=== PATIENT | female | born 1960 | race Caucasian/White ===

== ENCOUNTER 2022-07-02 07:56 | Emergency (ER) | payer OTHER, SELFPAY ==
--- NOTE | ~2022-07-02 | XR_ITS ---
EXAMINATION: XR CHEST CLINICAL INFORMATION: Chest pain COMPARISON: Chest x-ray June 20, 2018 TECHNIQUE: Frontal view of the chest was obtained. FINDINGS: Cardiac silhouette is normal in size. The lungs are well aerated. There is no lobar consolidation. No pleural effusion or pneumothorax. XR/XR chest 1V IMPRESSION: No acute pulmonary pathology.
--- NOTE | 2022-07-02 07:57 | ECG_ITS ---
Test Reason : CHEST PAIN Blood Pressure : / mmHG Vent. Rate : 091 BPM Atrial Rate : 091 BPM P-R Int : 168 ms QRS Dur : 064 ms QT Int : 352 ms P-R-T Axes : 055 -07 036 degrees QTc Int : 432 ms Normal sinus rhythm Possible Left atrial enlargement Septal infarct , age undetermined Abnormal ECG No previous ECGs available Referred By: Generic ED Physician Electronically Signed By:JADE GAYTAN
[2022-07-02 08:00] VITALS: BP 185/90; PULSE 93; RESP 18; TEMP 37.2; O2SAT 97; BMI 34.9
--- NOTE | 2022-07-02 08:16 | ED.CHESTPAIN ---
HPI - Chest Pain General Chief Complaint: Chest Pain Stated Complaint: chest pain Time Seen by Provider: 07/02/22 08:02 Source: patient Mode of arrival: ambulatory Limitations: no limitations History of Present Illness HPI narrative: 62-year-old female past medical history of hypertension, diabetes, asthma, GERD presents to the emergency department with a 2 day history of shortness of breath and chest tightness/pain located in the epigastric area with associated weakness and fatigue. Patient states she has pressure on her chest as if 'an elephant was sitting on her.' She also reports body twitching that began this morning. She has been using ASA 81 mg at home. She states she is prescribed amlodipine, losartan, Carvedilol, and HCTZ for treatment of her hypertension, however; she is not taken any of her medications in the past week as she has run out. She is prescribed insulin and metformin for control of her diabetes and has not taken those for the past 2 days as she states she felt too sick to take her medication. She states her blood sugar at home was 253 yesterday. She denies any known illness, recent contacts, nausea, vomiting, diarrhea, constipation, headache, or vision changes. MD complaint: chest pain Onset (ago): day(s) (2) Timing of current episode: constant Prior episodes: No Pain location: epigastric Pain radiation: none Severity: moderate Pain scale (0-10): 4 Quality: heaviness and crushing Relieving factors: nothing Exacerbating factors: other (talking) Treatment prior to arrival: aspirin Risk Factors Coronary artery disease risk factors: diabetes and hypertension Related Data On Oral Contraceptives: No Previous Rx's Medication Instructions Recorded nitrofurantoin macrocrystal 100 mg 100 mg PO BID 5 days #10 caps 07/02/22 capsule Allergies Allergy/AdvReac Type Severity Reaction Status Date / Time ciprofloxacin [From Cipro] Allergy Anaphylaxis Verified 07/02/22 07:59 Penicillins [PCN] Allergy Anaphylaxis Verified 07/02/22 07:59 sulfamethoxazole Allergy Anaphylaxis Verified 07/02/22 07:59 [From Bactrim] trimethoprim [From Bactrim] Allergy Anaphylaxis Verified 07/02/22 07:59 Review of Systems Review of Systems: In addition to documented HPI above, the additional ROS was obtained: CONSTITUTIONAL: Denies fever, chills, headache, night sweats, or weight loss EYES: Denies vision changes, eye pain, swelling, redness, foreign body, discharge ENT: Hearing normal. Denies sore throat, swallowing difficulty. congestion, ear pain, no hoarseness or CV: No edema, palpitations, or dyspnea on exertion RESP: Denies cough, wheezing, dyspnea. Denies smoke exposure GI: Denies abdominal pain. Denies nausea, vomiting, constipation or diarrhea. No melena or hematochezia. : Denies irregular bleeding, and dysuria, urinary frequency, urinary incontinence/retention, urgency. Denies flank pain, hematuria MSK: Denies recent trauma, change in gait, myalgias, joint swelling or pain SKIN: Denies no lesions, rashes, or sores NEURO: Denies new numbness, tingling, dizziness, paresthesias or weakness. No loss of consciousness. Denies headache ENDOCRINE: Denies unexpected weight loss. Denies polyuria, polydipsia. No temperature intolerance HEME/ONC: Denies bleeding disorders, easy bruising, or lymphadenopathy PSYCH: Denies anxiety/panic, depression, SI/HI, or social issues. Yes all other systems are reviewed and are negative PMFSH Social History Social History Alcohol intake: never Smoked in Last 30 Days: No Use of substances other than those prescribed or required for medical reasons: No Advance Directives: No Advance Directives Information Provided: Yes Patient : No Physical Exam Vital Signs: Vital Signs: Last Vital Signs Temp 98.9 F 07/02/22 08:00 Pulse 83 07/02/22 12:18 Resp 18 07/02/22 12:18 BP 162/93 H 07/02/22 12:18 Pulse Ox 96 07/02/22 11:34 O2 Del Method 07/02/22 11:34 BMI result Body Mass Index 34.9 Const: General: cooperative, alert and awake Nutritional Appearance: well nourished Orientation/consciousness: patient oriented x3 Limitations: no limitations HEENT: Head: Yes normal to inspection and Yes atraumatic Ears: hearing grossly normal bilaterally and external ears normal General nose exam: Normal external nose present and Normal nares present Face and sinus: Yes normal facial exam and Yes face symmetric Mouth: Normal oral and palatal mucosa present and lip normal Eyes: General: appearance normal, both eyes and all related structures Visual Sam: normal visual sam by confrontation Alignment and Position: alignment normal Periorbital: periorbital findings normal Eyelids: Yes eyelids normal Conjunctivae: conjunctivae normal Sclerae: sclerae normal Corneas: corneas normal Pupils: Equal, round and reactive pupils present EOM: EOMs intact bilaterally Neck: Neck: Yes normal visual inspection, Yes full ROM and Yes no lymphadenopathy Chest: Chest palpation & inspection: normal inspection of the chest Resp: Effort & Inspection: normal respiratory effort, Actively coughing Quality: dry and not labored Auscultation: crackles on the left in the mid lung sam, no wheezes and diminished lung sounds Cardio: Jugular venous distension: no JVD Rate: regular rate Rhythm: regular rhythm GI: Inspection: Yes normal to inspection Palpation (GI): Soft to palpation and nontender Auscultation: normal bowel sounds : General: Yes no CVA tenderness Back/Spine/Pelvis: Back: no CVA tenderness Cervical Spine: cervical ROM normal Thoracic/Lumbar Spine: thoraco-lumbar ROM normal Skin: General skin exam: no rashes or lesions noted Neuro: General: patient oriented x3, tone normal and moves all extremities Cranial nerves: Yes Equal, round and reactive pupils present Cognition (Neuro): normal cognition Gait exam (Neuro): Normal gait present Motor exam (neuro): 5/5 motor strength present throughout Extrem: General: Yes normal to inspection, Yes full ROM and Yes capillary refill normal Psych: Appearance: grossly normal Mental Status: mental status grossly normal Speech and movement: Normal speech and movement present Affect: normal affect Attitude: cooperative Thought process: Normal thought process present Thought content: Normal thought content present Insight: Good insight present (Psych) Judgement: Good judgement present (Psych) Course Course Course Narrative: 0800: EKG, CXR, and labs ordered to rule in/out acute cardiac process. 0830: UA, MICHAELS, and mag level ordered due to pt's complaints of jerking movements. 1000: Pt ambulating to bathroom independently without issue Medications Administered Discontinued Medications Generic Name Dose Route Start Last Admin Trade Name Iris PRN Reason Stop Dose Admin Amlodipine Besylate 5 mg 07/02/22 11:00 07/02/22 11:39 Amlodipine Besylate 5 Mg Tablet PO 07/02/22 11:01 5 mg ONCE ONE Administration Protocol Carvedilol 12.5 mg 07/02/22 11:00 07/02/22 11:39 Carvedilol 12.5 Mg Tablet PO 07/02/22 11:01 12.5 mg ONCE ONE Administration Protocol Hydrochlorothiazide 25 mg 07/02/22 11:00 07/02/22 11:39 Hydrochlorothiazide 25 Mg Tablet PO 07/02/22 11:01 25 mg ONCE ONE Administration Protocol Insulin Human Lispro 8 unit 07/02/22 12:41 07/02/22 12:43 Insulin Lispro 100 Unit/Ml 3 Ml Vial SUBCUT 07/02/22 12:42 8 unit ONCE ONE Administration Losartan Potassium 100 mg 07/02/22 11:00 07/02/22 11:39 Losartan Potassium 50 Mg Tablet PO 07/02/22 11:01 100 mg ONCE ONE Administration Protocol Medical Decision Making Medical Decision Making MDM Narrative: 62-year-old female past medical history of hypertension, diabetes, asthma, GERD presents to the emergency department with a 2 day history of shortness of breath and chest tightness/pain located in the epigastric area with associated weakness and fatigue. Patient states she has pressure on her chest as if 'an elephant was sitting on her.' She also reports body twitching that began this morning. CXR with no acut pulmonary pathology, cardiac silhouette is normal in size. EKG normal sinus rhythm with possible left atrial enlargement, and septal infarct age undetermined. Blood work showing glucose level 347, otherwise unremarkable. Troponin negative. 8 units SQ Lispro given with repeat POC 276. Patient educated to take her prescribed medication to manage her diabetes. Patient's prescribed antihypertensives given in the emergency department as patient's blood pressure is 185/90 and patient has not taken her prescribed blood pressure medication in greater than 1 week with repeat blood pressure improved. Urinalyisis consistent with UTI. Nitrofurantion 7 day course prescribed for antibiotic coverage. HPI, PE, and diagnostics consistent with acute on chronic hypertension. Low suspicion for acute cardiac or pulmonary pathology. Patient is safe for discharge at this time and educated on importance of medical compliance. HPI, PE, diagnostics, and plan discussed with patient and family with no unanswered questions at this time. Patient educated to return to the emergency department with new, worsening, or concerning emergent symptoms. Recommended to follow-up with her primary care provider for further treatment and management. *Refer to Course for additional information on consultations, diagnostic interpretation, consultations, emergency department stay, conversations with patient and family, shared decision making with patient, and more information on medical decision making* Lab Data MDM Lab Attestation statement: I reviewed the patient's lab results. 07/02/22 08:24 07/02/22 08:24 Labs: Lab Results 07/02/22 07/02/22 07/02/22 Range/Units 08:24 08:24 08:24 WBC 9.3 (4.8-10.8) X10*3/uL RBC 5.14 (4.20-5.50) X10*6/uL Hgb 14.8 (12.0-16.0) g/dl Hct 43.5 (37.0-47.0) % MCV 84.6 (80.0-98.0) fL MCH 28.8 (27.0-33.0) pg MCHC 34.0 (31.0-35.0) g/dl RDW 11.8 (11.0-16.0) % Plt Count 320 (160-400) X10*3/uL MPV 9.8 (9.4-12.3) fL Immature Gran % (Auto) 0.2 (0.0-0.4) % Neut % (Auto) 51.0 (45-73) % Lymph % (Auto) 38.1 (20-40) % [place] % (Auto) 8.0 (2-11) % Eos % (Auto) 2.1 (0-4) % Baso % (Auto) 0.6 (0-2) % Lymph # (Auto) 3.5 (1.2-4.9) X10*3/uL [place] # (Auto) 0.7 (0.1-1.2) X10*3/uL Eos # (Auto) 0.2 (0.0-0.4) X10*3/uL Baso # (Auto) 0.1 (0.0-0.2) X10*3/uL Abs Immat Gran (auto) 0.02 (0.00-0.03) X10*3/uL Absolute Neuts (auto) 4.7 (2.0-8.3) x10*3/uL Absolute Nucleated RBC 0.000 (0.0-0.012) X10*3/uL Nucleated RBC % (auto) 0.0 (0.0-0.2) /100WBC Sodium 138 (135-145) mmol/L Potassium 4.1 (3.3-5.1) mmol/L Chloride 103 (96-108) mmol/L Carbon Dioxide 23 (22-29) mmol/L Anion Gap 16 (12-20) BUN 16 (9-16) mg/dL Creatinine 1.02 (0.5-1.4) mg/dL Estim Creat Clear Calc 53.2 Estimated GFR 55 POC Glucose (60-115) mg/dL Random Glucose 347 H (60-115) mg/dL Calcium 9.5 (8.4-10.2) mg/dL Magnesium (1.6-2.6) mg/dL Total Bilirubin 0.6 (0.0-1.0) mg/dL AST 32 H (5-31) U/L ALT 26 (0-31) U/L Alkaline Phosphatase 94 (39-117) U/L Troponin I High Sens < 3.5 (<3.5-17.0) ng/L Total Protein 6.8 (6.5-8.0) g/dL Albumin 4.2 (3.5-5.0) g/dL Urine Color Urine Appearance Urine pH (5.0-9.0) Ur Specific [place] (1.005-1.025) Urine Protein (Neg-Trace) mg/dL Urine Glucose (UA) (Negative) mg/dL Urine Ketones (Negative) mg/dL Urine Blood (Negative) Urine Nitrite (Negative) Ur Leukocyte Esterase (Negative) Urine RBC (0-2) /HPF Urine WBC (0-5) /HPF Ur Squamous Epith Cells (0-2) /HPF Urine Bacteria (None Seen) Hyaline Casts (0-2) /LPF Urine Opiates Screen (Not Detect) Urine Fentanyl Screen (Not Detect) Ur Barbiturates Screen (Not Detect) Ur Phencyclidine Scrn (Not Detect) Ur Amphetamines Screen (Not Detect) U Benzodiazepines Scrn (Not Detect) Urine Cocaine Screen (Not Detect) U Marijuana (THC) Screen (Not Detect) Ethyl Alcohol mg/dL 07/02/22 07/02/22 07/02/22 Range/Units 08:52 11:38 11:38 WBC (4.8-10.8) X10*3/uL RBC (4.20-5.50) X10*6/uL Hgb (12.0-16.0) g/dl Hct (37.0-47.0) % MCV (80.0-98.0) fL MCH (27.0-33.0) pg MCHC (31.0-35.0) g/dl RDW (11.0-16.0) % Plt Count (160-400) X10*3/uL MPV (9.4-12.3) fL Immature Gran % (Auto) (0.0-0.4) % Neut % (Auto) (45-73) % Lymph % (Auto) (20-40) % [place] % (Auto) (2-11) % Eos % (Auto) (0-4) % Baso % (Auto) (0-2) % Lymph # (Auto) (1.2-4.9) X10*3/uL [place] # (Auto) (0.1-1.2) X10*3/uL Eos # (Auto) (0.0-0.4) X10*3/uL Baso # (Auto) (0.0-0.2) X10*3/uL Abs Immat Gran (auto) (0.00-0.03) X10*3/uL Absolute Neuts (auto) (2.0-8.3) x10*3/uL Absolute Nucleated RBC (0.0-0.012) X10*3/uL Nucleated RBC % (auto) (0.0-0.2) /100WBC Sodium (135-145) mmol/L Potassium (3.3-5.1) mmol/L Chloride (96-108) mmol/L Carbon Dioxide (22-29) mmol/L Anion Gap (12-20) BUN (9-16) mg/dL Creatinine (0.5-1.4) mg/dL Estim Creat Clear Calc Estimated GFR POC Glucose (60-115) mg/dL Random Glucose (60-115) mg/dL Calcium (8.4-10.2) mg/dL Magnesium 1.7 (1.6-2.6) mg/dL Total Bilirubin (0.0-1.0) mg/dL AST (5-31) U/L ALT (0-31) U/L Alkaline Phosphatase (39-117) U/L Troponin I High Sens (<3.5-17.0) ng/L Total Protein (6.5-8.0) g/dL Albumin (3.5-5.0) g/dL Urine Color Yellow Urine Appearance Clear Urine pH 6.0 (5.0-9.0) Ur Specific [place] 1.025 (1.005-1.025) Urine Protein 30 (1+) H (Neg-Trace) mg/dL Urine Glucose (UA) >=1000 H (Negative) mg/dL Urine Ketones 15 (Negative) mg/dL Urine Blood Negative (Negative) Urine Nitrite Negative (Negative) Ur Leukocyte Esterase Small (1+) H (Negative) Urine RBC 0-2 (0-2) /HPF Urine WBC 11-20 H (0-5) /HPF Ur Squamous Epith Cells 3-5 (0-2) /HPF Urine Bacteria None Seen (None Seen) Hyaline Casts 0-2 (0-2) /LPF Urine Opiates Screen Not Detected (Not Detect) Urine Fentanyl Screen Not Detected (Not Detect) Ur Barbiturates Screen Not Detected (Not Detect) Ur Phencyclidine Scrn Not Detected (Not Detect) Ur Amphetamines Screen Not Detected (Not Detect) U Benzodiazepines Scrn Not Detected (Not Detect) Urine Cocaine Screen Not Detected (Not Detect) U Marijuana (THC) Screen Not Detected (Not Detect) Ethyl Alcohol < 10 mg/dL 07/02/22 07/02/22 Range/Units 12:40 13:35 WBC (4.8-10.8) X10*3/uL RBC (4.20-5.50) X10*6/uL Hgb (12.0-16.0) g/dl Hct (37.0-47.0) % MCV (80.0-98.0) fL MCH (27.0-33.0) pg MCHC (31.0-35.0) g/dl RDW (11.0-16.0) % Plt Count (160-400) X10*3/uL MPV (9.4-12.3) fL Immature Gran % (Auto) (0.0-0.4) % Neut % (Auto) (45-73) % Lymph % (Auto) (20-40) % [place] % (Auto) (2-11) % Eos % (Auto) (0-4) % Baso % (Auto) (0-2) % Lymph # (Auto) (1.2-4.9) X10*3/uL [place] # (Auto) (0.1-1.2) X10*3/uL Eos # (Auto) (0.0-0.4) X10*3/uL Baso # (Auto) (0.0-0.2) X10*3/uL Abs Immat Gran (auto) (0.00-0.03) X10*3/uL Absolute Neuts (auto) (2.0-8.3) x10*3/uL Absolute Nucleated RBC (0.0-0.012) X10*3/uL Nucleated RBC % (auto) (0.0-0.2) /100WBC Sodium (135-145) mmol/L Potassium (3.3-5.1) mmol/L Chloride (96-108) mmol/L Carbon Dioxide (22-29) mmol/L Anion Gap (12-20) BUN (9-16) mg/dL Creatinine (0.5-1.4) mg/dL Estim Creat Clear Calc Estimated GFR POC Glucose 282 H 276 H (60-115) mg/dL Random Glucose (60-115) mg/dL Calcium (8.4-10.2) mg/dL Magnesium (1.6-2.6) mg/dL Total Bilirubin (0.0-1.0) mg/dL AST (5-31) U/L ALT (0-31) U/L Alkaline Phosphatase (39-117) U/L Troponin I High Sens (<3.5-17.0) ng/L Total Protein (6.5-8.0) g/dL Albumin (3.5-5.0) g/dL Urine Color Urine Appearance Urine pH (5.0-9.0) Ur Specific [place] (1.005-1.025) Urine Protein (Neg-Trace) mg/dL Urine Glucose (UA) (Negative) mg/dL Urine Ketones (Negative) mg/dL Urine Blood (Negative) Urine Nitrite (Negative) Ur Leukocyte Esterase (Negative) Urine RBC (0-2) /HPF Urine WBC (0-5) /HPF Ur Squamous Epith Cells (0-2) /HPF Urine Bacteria (None Seen) Hyaline Casts (0-2) /LPF Urine Opiates Screen (Not Detect) Urine Fentanyl Screen (Not Detect) Ur Barbiturates Screen (Not Detect) Ur Phencyclidine Scrn (Not Detect) Ur Amphetamines Screen (Not Detect) U Benzodiazepines Scrn (Not Detect) Urine Cocaine Screen (Not Detect) U Marijuana (THC) Screen (Not Detect) Ethyl Alcohol mg/dL Independent Interpretation I performed an independent interpretation of an: EKG Interpretation: I have independently reviewed the EKG showing normal sinus rhythm with possible left atrial enlargement with an age undetermined septal infarct. No previous EKGs available to review/compare Vent. Rate : 091 BPM ? ? Atrial Rate : 091 BPM ?? P-R Int : 168 ms? QRS Dur : 064 ms ? ?QT Int : 352 ms ? ? ? P-R-T Axes : 055 -07 036 degrees ?? QTc Int : 432 ms ? Normal sinus rhythm Possible Left atrial enlargement Septal infarct , age undetermined Abnormal ECG No previous ECGs available Radiology Impression Discussion of test interpretation with radiology: I have reviewed the radiologist's reading. Radiologist Impression: I have independently reviewed the chest x-ray showing no acute cardiopulmonary pathology EXAMINATION: XR CHEST CLINICAL INFORMATION: Chest pain COMPARISON: Chest x-ray June 20, 2018 TECHNIQUE: Frontal view of the chest was obtained. FINDINGS: Cardiac silhouette is normal in size. The lungs are well aerated. There is no lobar consolidation. No pleural effusion or pneumothorax. XR/XR chest 1V IMPRESSION: No acute pulmonary pathology. ? Dictated By: Jasbir Guardado MD Signed By: <Electronically signed by Jasbir Guardado MD in OV> 07/02/22 1020 DD/ 0955 TD/TT:? 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 You have been given 8 units of insulin for treatment of hyperglycemia. Your urine is positive for infection and will be started on a 7 day course of antibiotics. Please complete full course of antibiotics. Your EKG is normal sinus rhythm, possible left atrial enlargement, septal infarct age undetermined. You are safe for discharge at this time. Please manage your symptoms with [id number] Tylenol and/or Motrin with dosing as directed on packaging. Please return to the emergency department with new, worsening, or concerning emergent symptoms. Please follow-up with your primary care provider for further treatment and management. Prescriptions: New nitrofurantoin macrocrystal 100 mg capsule 100 mg PO BID 5 Days Qty: 10 0RF Rx Instructions: must administer with a meal/food Referrals: [facility] [place] Family Medicine [Provider Group] [facility] [place] Primary [facility] [Provider Group] [facility] [place] [facility] [Provider Group] Print Language: Greenlandic
[2022-07-02 08:29] LABS: Basophils Absolute Auto 0.1 X10*3/uL (0.0-0.2); Basophils Percent Auto 0.6 % (0-2); Eosinophils Absolute Auto 0.2 X10*3/uL (0.0-0.4); Eosinophils Percent Auto 2.1 % (0-4); Hematocrit 43.5 % (37.0-47.0); Hemoglobin 14.8 g/dl (12.0-16.0); Imm Gran Abs Auto 0.02 X10*3/uL (0.00-0.03); Imm Gran Pct Auto 0.2 % (0.0-0.4); Lymphocytes Absolute Auto 3.5 X10*3/uL (1.2-4.9); Lymphocytes Percent Auto 38.1 % (20-40); MANUAL DIFF FLAG NO; Mean Corpuscular Hemoglobin 28.8 pg (27.0-33.0); Mean Corpuscular Volume 84.6 fL (80.0-98.0); Mean Platelet Volume 9.8 fL (9.4-12.3); Monocytes Absolute Auto 0.7 X10*3/uL (0.1-1.2); Neutrophils Absolute Auto 4.7 x10*3/uL (2.0-8.3); Platelet Count 320 X10*3/uL (160-400); Red Blood Count 5.14 X10*6/uL (4.20-5.50); Red Cell Distribution Width 11.8 % (11.0-16.0); White Blood Count 9.3 X10*3/uL (4.8-10.8)
[2022-07-02 08:48] LABS: Alanine Aminotransferase 26 U/L (0-31); Albumin Level 4.2 g/dL (3.5-5.0); Alkaline Phosphatase 94 U/L (39-117); Anion Gap 16 (12-20); Aspartate Amino Transferase 32 U/L (5-31); Bilirubin Total 0.6 mg/dL (0.0-1.0); Blood Urea Nitrogen 16 mg/dL (9-16); Calcium 9.5 mg/dL (8.4-10.2); Carbon Dioxide 23 mmol/L (22-29); Chloride 103 mmol/L (96-108); Creatinine Clr Calc Pharmacy 53.2; Estimated Glomerular Filt Rate 55; Glucose Random 347 mg/dL (60-115); Potassium 4.1 mmol/L (3.3-5.1); Sodium 138 mmol/L (135-145); Total Protein 6.8 g/dL (6.5-8.0)
[2022-07-02 08:55] LABS: Troponin-I High Sensitivity < 3.5 ng/L (<3.5-17.0)
[2022-07-02 09:16] LABS: Ethanol < 10 mg/dL; Magnesium 1.7 mg/dL (1.6-2.6)
[2022-07-02 11:34] VITALS: BP 179/84; PULSE 86; RESP 20; O2SAT 96
[2022-07-02] MEDS: hydroCHLOROthiazide 25 MG TABLET PO (11:39)
[2022-07-02] MEDS: carvediloL 12.5 MG TABLET PO (11:39)
[2022-07-02] MEDS: Losartan Potassium 50 MG TABLET 100 MG PO (11:39)
[2022-07-02] MEDS: amLODIPine Besylate 5 MG TABLET PO (11:39)
[2022-07-02 11:50] LABS: Appearance Urine Clear; Color Urine Yellow; Glucose Urine UA >=1000 mg/dL (Negative); Leukocyte Esterase Urine Small (1+) (Negative); Nitrite Urine Negative (Negative); Specific Gravity - Urine 1.025 (1.005-1.025); UMIC TRIGGER UACC YES; Urine Blood Negative (Negative); Urine Ketones 15 mg/dL (Negative); Urine Protein 30 (1+) mg/dL (Neg-Trace)
[2022-07-02 11:53] LABS: Bacteria Urine None Seen (None Seen); Hyaline Casts Urine 0-2 /LPF (0-2); RBC Urine 0-2 /HPF (0-2); UACC Culture Trigger YES
[2022-07-02 12:15] LABS: Amphetamine Screen Urine Not Detected (Not Detect); Barbiturates, Urine Not Detected (Not Detect); Benzodiazepines Screen Urine Not Detected (Not Detect); Cannabinoid Screen Urine Not Detected (Not Detect); Cocaine Screen Urine Not Detected (Not Detect); Fentanyl, urine Not Detected (Not Detect); Opiate Screen Urine Not Detected (Not Detect); Phencyclidine Screen Urine Not Detected (Not Detect)
[2022-07-02 12:18] VITALS: BP 162/93; PULSE 83; RESP 18
[2022-07-02] MEDS: Insulin Lispro 100 UNIT/ML 3 ML VIAL 8 UNIT SUBCUT (12:43)
[2022-07-02 12:45] LABS: Glucose, Whole Blood 282 mg/dL (60-115)
[2022-07-02 13:40] LABS: Glucose, Whole Blood 276 mg/dL (60-115)
== END 2022-07-02 14:20 | disposition home or self-care (01) ==
PROVIDERS: Nurse Practitioner Family; Emergency Provider Student in an Organized Health Care Education/Training Program
DX: R07.9 Chest pain, unspecified (principal); I10 Essential (primary) hypertension; E11.9 Type 2 diabetes mellitus without complications; Z79.899 Other long term (current) drug therapy
CPT/HCPCS: 36415; 71045; 80053; 80307; 81001; 82077; 82947; 83735; 84484; 85025; 87086; 87147; 93005; 99283; 99285

== ENCOUNTER 2022-12-02 05:18 | Emergency (ER) | payer OTHER, SELFPAY ==
--- NOTE | ~2022-12-02 | CT_ITS ---
EXAMINATION: CT PELVIS WITHOUT CONTRAST CLINICAL INFORMATION: Rule out fracture on the right, status post fall COMPARISON: None available. TECHNIQUE: Helical scanning was performed with submillimeter collimation through the pelvis. Sagittal and coronal multiplanar 2-D reconstructions were obtained. This CT examination was performed using dose optimization techniques as appropriate, variously including the following: *Automated exposure control *Adjustment of mA and/or kV according to patient size (this includes techniques or standardized protocols for targeted exams where dose is matched to indication/reason for exam; i.e. extremities or head) *Use of iterative reconstruction technique DLP: 459 mGy-cm FINDINGS: VASCULAR: Unremarkable. LYMPH NODES: Normal BLADDER: Unremarkable PELVIC VISCERA: Unremarkable VISUALIZED GASTROINTESTINAL TRACT: The small and large bowel are unremarkable. OSSEOUS STRUCTURES: Visualized osseous structures are intact. There is no evidence of pelvic or hips fractures. Soft tissues surrounding right side of the pelvis and hips are unremarkable also. CT/CT pelvis wo IV con IMPRESSION: Unremarkable examination.
[2022-12-02 05:24] VITALS: BP 183/89; PULSE 94; RESP 18; TEMP 36.2; O2SAT 96; BMI 35.0
--- NOTE | 2022-12-02 05:46 | ED_ITS ---
HPI - General Adult General Chief complaint: Extremity Injury, Lower Stated complaint: Hip pain Time Seen by Provider: 12/02/22 05:30 Source: patient Mode of arrival: ambulatory Limitations: no limitations History of Present Illness HPI narrative: Patient comes to the emergency room complaining of right-sided hip pain for 2 weeks. Patient states that 2 weeks ago she missed a step and landed on the right side of the hip, no other injuries past, not on blood thinners. Patient states that she has been able to ambulate but over the last 3 days it has been coming more severe to the point that she cannot bear weight. Patient denies numbness tingling of lower extremity, no previous back/hip injuries. Related Data Previous Rx's Medication Instructions Recorded nitrofurantoin macrocrystal 100 mg 100 mg PO BID 5 days #10 caps 07/02/22 capsule Allergies Allergy/AdvReac Type Severity Reaction Status Date / Time ciprofloxacin [From Cipro] Allergy Anaphylaxis Verified 07/02/22 07:59 Penicillins [PCN] Allergy Anaphylaxis Verified 07/02/22 07:59 sulfamethoxazole Allergy Anaphylaxis Verified 07/02/22 07:59 [From Bactrim] trimethoprim [From Bactrim] Allergy Anaphylaxis Verified 07/02/22 07:59 Review of Systems Review of Systems: Constitutional : No Weight loss, No Fever, No Chills, No Night Sweats, No Fatigue, No Malaise ENT/Mouth : No Hearing loss, No Ear Pain, No Nasal Congestion, No Sinus Pain, No Hoarseness, No sore throat, No Rhinorrhea, No Swallowing Difficulty Eyes: No Eye Pain, No Swelling, No Redness, No Foreign Body, No Discharge, No Vision Changes Cardiovascular : No Chest Pain, No SOB, No Dyspnea on Exertion, No Orthopnea, No Edema, No Palpitations Respiratory : No Cough, No Sputum, No Wheezing, No Smoke Exposure, No Dyspnea Gastrointestinal : No Nausea, No Vomiting, No Diarrhea, No Constipation, No abdominal Pain, No Hematochezia, No Melena Genitourinary : no irregular bleeding, No Dysuria, No Urinary Frequency, No Hematuria, No Urinary Incontinence, No Urgency, No Flank Pain, No Urinary Flow Changes, No Hesitancy Musculoskeletal : Complaining of right-sided hip pain, No joint pain, No Myalgias, No Joint Swelling Skin : No Skin Lesions, No rash Neuro : No Weakness, No Numbness, No Paresthesias, No Loss of Consciousness, No Dizziness, No Headache Psych : No Anxiety/Panic, No Depression, No SI/HI/AH/VH, No Social Issues, Heme/Lymph: No Bruising, No Bleeding,No Lymphadenopathy Endocrine : No Polyuria, No Polydipsia, No Temperature Intolerance [facility] Past Medical History Medical History (Updated 12/02/22 @ 06:55 by Aileen Paige MD) Diabetes Hyperlipidemia Hypertension Social History Social History Alcohol intake: never Use of substances other than those prescribed or required for medical reasons: No Advance Directives: No Advance Directives Information Provided: Yes Physical Exam ED Vital Signs: Vital Signs - 24 hr 12/02/22 05:24 12/02/22 06:35 Temperature 97.2 F 98.4 F Pulse Rate 94 81 Respiratory Rate 18 16 Blood Pressure 183/89 H 142/75 H Pulse Oximetry 96 95 Oxygen Delivery Method Room Air Room Air BMI result Body Mass Index 35.0 Const Other: Appearance: Alert. Oriented X3. No acute distress. Eyes: Pupils equal, round and reactive to light. ENT: Pharynx normal. Neck: Normal inspection. Neck supple. No lymph nodes noted. No crepitus CVS: Normal heart rate and rhythm. Pulses normal. Normal S1 and S2 Respiratory: No respiratory distress. Breath sounds normal. No Wheezing. No rales Abdomen: Soft and nontender. No rigidity. No distention. Skin: Skin warm and dry. Normal skin color. Normal skin turgor. Extremities: No lower extremity edema. No Lacerations. No Rash. pain with right- sided hip flexion extension and rotation, unable to bear weight fully on the right side, no erythema or swelling of the Neuro: Oriented X 3. No motor deficit. No sensory deficit. Moving all extremities. No slurred speech. CN 2 through 12 grossly intact Psych: calm, cooperative, normal affect Course Course Course Narrative: -unlikely that the patient has an obvious fracture, we will go ahead and start with a scan of the pelvis/hip -patient received 1 dose of IM morphine - Medications Administered Discontinued Medications Generic Name Dose Route Start Last Admin Trade Name Freq PRN Reason Stop Dose Admin Morphine Sulfate 4 mg 12/02/22 05:45 12/02/22 06:01 Morphine Sulfate 4 Mg/Ml Cartridge IM 12/02/22 05:46 4 mg ONCE ONE Administration Protocol Discharge Plan Discharge Clinical Impression: Acute hip pain Patient Disposition: Still a Patient Prescriptions: No Action nitrofurantoin macrocrystal 100 mg capsule 100 mg PO BID 5 Days Qty: 10 0RF Rx Instructions: must administer with a meal/food
[2022-12-02] MEDS: Morphine Sulfate 4 MG/ML CARTRIDGE IM (06:01)
--- NOTE | 2022-12-02 06:17 | PC.NURSE ---
pt a&o, denies any sob or chest pain, medicated per mar. Pt repositioned for comfort. Will continue to monitor.
[2022-12-02 06:35] VITALS: BP 142/75; PULSE 81; RESP 16; TEMP 36.9; O2SAT 95
[2022-12-02 07:05] VITALS: BP 169/74; PULSE 89; RESP 18; O2SAT 95
--- NOTE | 2022-12-02 07:08 | PC.NURSE ---
Alert and oriented. States pain improved after morpine but still 12/03/ Resting comfortably awaiting CT scan.
--- NOTE | 2022-12-02 08:58 | PC.NURSE ---
pt aox4, reporting right hip pain/stiffness that has increased over the past 2 weeks post mis-step to the point where it has become painful to sit/lie down and wlak. pt has tried otc medications ice/heat and other remedies at home without relief. pt ambulated to the bathroom with standby assist morphine IM admin earlier gave some relief to pain
[2022-12-02 09:12] VITALS: BP 135/90; PULSE 74; RESP 18; TEMP 36.6; O2SAT 96
[2022-12-02] MEDS: Lidocaine 4 % Patch ADH..PATCH 1 PATCH TRANSDERMA (09:38)
[2022-12-02] MEDS: Cyclobenzaprine HCl 10 MG TABLET PO (09:38)
[2022-12-02] MEDS: oxyCODONE HCl Immed Release 5 MG TABLET 10 MG PO (09:38)
== END 2022-12-02 09:49 | disposition home or self-care (01) ==
PROVIDERS: Emergency Provider Emergency Medicine
DX: M25.551 Pain in right hip (principal); R10.2 Pelvic and perineal pain; Z79.899 Other long term (current) drug therapy
CPT/HCPCS: 72192; 96372; 99284; J2270